=== PATIENT | male | born 1975 | race Hispanic/Latino ===

== ENCOUNTER 2021-01-19 09:59 | Emergency (ER) | payer SELFPAY ==
[2021-01-19] MEDS ORDERED: Lidocaine 1% (PF) 30 ML VIAL ONE (11:01)
[2021-01-19] MEDS ORDERED: Ibuprofen 800 MG TAB ONE (11:03)
[2021-01-19] MEDS ORDERED: Boostrix 0.5 ML (Tdap) VIAL ONE (11:03)
== END 2021-01-19 11:50 | disposition home or self-care (01) ==
LOC: ERS 09:59
DX: S61.412A Laceration without foreign body of left hand, initial encounter (principal); F17.290 Nicotine dependence, other tobacco product, uncomplicated; W27.8XXA Contact with other nonpowered hand tool, initial encounter
CPT/HCPCS: 12002; 90471; 90715; J2001